=== PATIENT | male | born 1995 | race Caucasian/White ===

== ENCOUNTER 2020-04-06 22:05 | Emergency (ER) | payer BC ==
[~2020-04-06] VITALS: Ht 180.3 cm; Wt 78.3 kg
[2020-04-06 22:08] VITALS: BP 133/99
[2020-04-06] MEDS ORDERED: LIDOCAINE-MPF 1%, 5ML INFIL ONE (23:00)
[2020-04-06] MEDS ORDERED: LIDOCAINE-MPF 1%, 5ML ONE (23:14)
--- NOTE | 2020-04-06 23:20 | NUR ---
PT AMBULATORY, AWAKE/ALERT. NAD NOTED. PT UPDATED TO POC AND DEMONSTRATES UNDERSTANDING.
--- NOTE | 2020-04-07 00:35 | NUR ---
SUTURES IN PROGRESS
--- NOTE | 2020-04-07 01:05 | NUR ---
REPORT FROM TREY MAGANA ASSUMING CARE OF PT AT THIS TIME
== END 2020-04-07 01:47 | disposition home or self-care (01) ==
LOC: ED 04-07
DX: S02.2XXA Fracture of nasal bones, initial encounter for closed fracture (principal); S01.511A Laceration without foreign body of lip, initial encounter; Y04.0XXA Assault by unarmed brawl or fight, initial encounter; Y93.89 Activity, other specified; Y92.89 Other specified places as the place of occurrence of the external cause; Y99.8 Other external cause status
CPT/HCPCS: 21315; 40650; 70450; 70486; 99285